=== PATIENT | male | born 1995 ===

== ENCOUNTER 2017-07-19 14:33 | Emergency (ER) | payer MEDICAID, OTHER ==
[2017-07-19 14:34] VITALS: BMI 25.0
[2017-07-19 15:20] VITALS: BP 124/77
[2017-07-19] MEDS ORDERED: TDAP Vaccine 0.5 mL Syr IM ONE (15:32)
--- NOTE | 2017-07-19 16:17 | ED PDOC ---
Arrival/HPI - General Chief Complaint: Abnormal Skin Integrity Time Seen by Provider: 07/19/17 15:31 Historian: Patient - History of Present Illness Narrative History of Present Illness (Text): 07/19/17 16:13 21-year-old male presents today with a laceration to the left third finger. Patient states today around 8 AM he picked up a garbage bag and sustained a laceration. Patient states he thinks he was cut with glass. He isn't sure. Patient is refusing any medications for pain. He denies numbness weakness or tingling in the extremity. Denies decreased range of motion of the finger. Patient denies fevers or chills. Patient is unsure of his last tetanus shot. Patient presents for laceration repair. Time/Duration: Other (8am today) Symptom Onset: Sudden Symptom Course: Improving Past Medical History - Provider Review Nursing Documentation Reviewed: Yes - Travel History Have you recently traveled outside [place] w/in the past 3 mons?: No - Infectious Disease Hx of Infectious Diseases: None - Tetanus Immunization Tetanus Immunization: Unknown - Past Medical History Past Medical History: No Previous - Cardiac Hx Cardiac Disorders: No - Pulmonary Hx Respiratory Disorders: No - Neurological Hx Neurological Disorder: No - HEENT Hx HEENT Disorder: No - Renal Hx Renal Disorder: No - Endocrine/Metabolic Hx Endocrine Disorders: No - Hematological/Oncological Hx Blood Disorders: No - Integumentary Hx Dermatological Disorder: No - Musculoskeletal/Rheumatological Hx Musculoskeletal Disorders: No - Gastrointestinal Hx Gastrointestinal Disorders: No - Genitourinary/Gynecological Hx Genitourinary Disorders: No - Psychiatric Hx Psychophysiologic Disorder: No Hx Substance Use: No - Past Surgical History Past Surgical History: No Previous - Anesthesia Hx Anesthesia: Yes - Suicidal Assessment Feels Threatened In Home Enviroment: No Family/Social History - Physician Review Nursing Documentation Reviewed: Yes Family/Social History: Unknown Family HX Smoking Status: Never Smoked Hx Alcohol Use: No Hx Substance Use: No Hx Substance Use Treatment: No Allergies/Home Meds Allergies/Adverse Reactions: Allergies No Known Allergies Allergy (Verified 07/19/17 15:10) per patient Review of Systems - Review of Systems Constitutional: absent: Fatigue, Fevers Respiratory: absent: SOB, Cough Cardiovascular: absent: Chest Pain, Palpitations Gastrointestinal: absent: Abdominal Pain, Nausea, Vomiting Musculoskeletal: Arthralgias. absent: Back Pain, Neck Pain Skin: Laceration Neurological: absent: Headache, Dizziness Psychiatric: absent: Depression, Suicidal Ideation Physical Exam Vital Signs Reviewed: Yes Vital Signs Temp Pulse Resp BP Pulse Ox 07/19/17 15:20 98.3 F 60 16 124/77 100 07/19/17 15:19 98.3 F 60 16 124/77 100 Temperature: Afebrile Blood Pressure: Normal Pulse: Regular Respiratory Rate: Normal Appearance: Positive for: Well-Appearing, Non-Toxic, Comfortable Pain Distress: None Mental Status: Positive for: Alert and Oriented X 3 - Systems Exam Head: Present: Atraumatic Respiratory/Chest: Present: Clear to Auscultation Cardiovascular: Present: Regular Rate and Rhythm Upper Extremity: Present: Normal ROM, NORMAL PULSES, Neurovascularly Intact, Capillary Refill < 2s, Other (left 3rd finger there is a 1.5cm linear laceration noted to volar aspect of the distal phalanx; full rom of finger; no active bleeding; sensation and distal pulses intact. cap refill <2. ). No: Tenderness, Swelling, Erythema, Deformity Neurological: Present: GCS=15 Skin: Present: Warm, Dry Psychiatric: Present: Alert, Oriented x 3 Medical Decision Making ED Course and Treatment: 07/19/17 16:15 Patient is nontoxic well appearing in no distress. Vital signs are stable. Wound irrigated well with high pressure irrigation Tetanus updated Patient refused medications for pain Keflex by mouth X-ray of the left third finger: No visualized foreign body or fracture. Laceration repair: 5 sutures placed Bacitracin and dressing applied Patient was advised to keep the wound clean and dry, apply bacitracin twice daily. Advised to return immediately if signs of infection develop or return if any other concerning symptoms develop Patient verbalizes understanding of discharge instructions and need for immediate followup. Impression: Laceration, finger Motrin every 6 hours as needed for pain Keflex 1 capsule 4 times daily 7 days Keep the wound clean and dry, apply bacitracin twice daily Return in 7-10 days for suture removal Return immediately if signs of infection develop: High fevers, increasing pain, redness, swelling, purulent discharge Follow up with the hand specialist with the next 2 days. Followup with primary care physician within the next 2 days Return if any other concerning symptoms develop - RAD Interpretation Radiology Orders: 07/19/17 15:31 HAND LEFT 3RD DIGIT (FINGER) [RAD] Stat - Medication Orders Current Medication Orders: Discontinued Medications Cephalexin Monohydrate (Keflex) 500 mg PO STAT STA PRN Reason: Protocol Stop: 07/19/17 15:33 Last Admin: 07/19/17 16:46 Dose: 500 mg Lidocaine HCl (Lidocaine 2% 20ml Vial) 3 ml IJ ONCE STA Stop: 07/19/17 16:22 Tetanus/Reduced Diphtheria/Acell Pertussis (Boostrix Vaccine Inj) 0.5 ml IM .ONCE ONE Stop: 07/19/17 15:33 Last Admin: 07/19/17 16:45 Dose: 0.5 ml [facility] Immunization Data Document 07/19/17 16:45 [email or web address] (Rec: 07/19/17 16:46 [email or web address] [facility] [place] [facility] [place] Immunization Data Vaccine [employer] Vaccine Lot Number [id number] Vaccine Expiration Date 07/31/19 Site Given Right Deltoid Route Intramuscular Immunization Units ml Procedure: Wound Repair - Procedure Procedure: Wound Repair: laceration, finger - Consent Obtained Consent obtained: Verbal - Performed by Performed by: Mid-level Provider - Indications Indication(s):: Laceration - Location Finger:: Left, Middle Shape:: Linear Dimensions Length cm: 1.5cm Depth:: Epidermis - Anesthetic Technique Anesthetic Technique: Regional block (digital block) Local/Regional Anesthetic:: Lidocaine 2% - Debris Debris:: None - Irrigated Irrigated with ml of normal saline: copious amounts of NS using high pressure irrigation - Complexity Complexity:: Simple (one layer) - Wound repair method Sutures:: # (5), Size (4.0), Type (nylon), Technique (interrupted) - Complications Complications: none - Patient tolerated procedure Patient Tolerated Procedure:: Well Disposition/Present on Arrival - Present on Arrival Any Indicators Present on Arrival: No History of DVT/PE: No History of Uncontrolled Diabetes: No Urinary Catheter: No History of Decub. Ulcer: No History Surgical Site Infection Following: None - Disposition Have Diagnosis and Disposition been Completed?: Yes Diagnosis: Laceration of finger Disposition Time: 16:17 Patient Plan: Discharge Patient Problems: Current Active Problems Problem Status Onset Laceration of finger Acute Condition: GOOD Discharge Instructions (ExitCare): Finger Laceration (ED) Additional Instructions: Motrin every 6 hours as needed for pain Keflex 1 capsule 4 times daily 7 days Keep the wound clean and dry, apply bacitracin twice daily Return in 7-10 days for suture removal Return immediately if signs of infection develop: High fevers, increasing pain, redness, swelling, purulent discharge Follow up with the hand specialist with the next 2 days. Followup with primary care physician within the next 2 days Return if any other concerning symptoms develop Prescriptions: Cephalexin [Keflex] 500 mg PO QID #28 capsule Ibuprofen [Motrin] 600 mg PO Q6H PRN #20 tab PRN Reason: pain/fever reduction Referrals: Ney Bliss MD [Staff Provider] - Follow up with primary Cyril Venegas MD [Staff Provider] - Follow up with primary Forms: [facility] (Faroese), WORK NOTE
[2017-07-19] MEDS ORDERED: Lidocaine 2% Inj (20ml) IJ STA (16:21)
--- NOTE | 2017-07-19 17:00 | RAD ---
PROCEDURE: Left middle finger radiographs. HISTORY: laceration distal phalanx COMPARISON: None. TECHNIQUE: AP radiograph of the left hand, as well as spot oblique and lateral images of left middle finger were obtained. FINDINGS: LEFT MIDDLE FINGER: Left middle finger normal, without fracture of focal lesion. Remainder of the left hand (as seen on the AP view) is grossly unremarkable. JOINTS: Normal. No dislocation or subluxation. SOFT TISSUES: No retained radiodense foreign body appreciated. Limited soft tissue edema is questioned at the volar distal tuft soft tissues. No emphysema soft tissue changes. OTHER FINDINGS: None. IMPRESSION: No acute fracture or suspicious lytic or blastic change throughout the left long finger. Questionable tuft soft tissue edema noted.
[2017-07-19 17:24] VITALS: PULSE 88; TEMP 98; O2SAT 99
[2017-07-19 17:34] VITALS: RESP 18
== END 2017-07-19 17:34 | disposition home or self-care (01) ==
LOC: ED 14:33
DX: S61.213A Laceration without foreign body of left middle finger without damage to nail, initial encounter (principal); W25.XXXA Contact with sharp glass, initial encounter; Z23 Encounter for immunization

== ENCOUNTER 2017-09-01 15:22 | Emergency (ER) | payer OTHER ==
[2017-09-01 15:23] VITALS: BMI 25.0
[2017-09-01 15:40] VITALS: TEMP 98.6
--- NOTE | 2017-09-01 16:19 | ED PDOC ---
Arrival/HPI - General Chief Complaint: Upper Extremity Problem/Injury Time Seen by Provider: 09/01/17 15:42 Historian: Patient - History of Present Illness Narrative History of Present Illness (Text): 09/01/17 16:16 21yo male with dominant right hand and no PMHx present with complaint of right hand pain s/p trauma this morning. Patient states his hand was crushed inbetween two dumpsters while at work this morning. Came to ED for the persistent pain. Did not take any medication for the pain. He have small abrasion. States his last TD vaccine was 3months ago. Past Medical History - Provider Review Nursing Documentation Reviewed: Yes - Infectious Disease Hx of Infectious Diseases: None - Tetanus Immunization Tetanus Immunization: Unknown - Past Medical History Past Medical History: No Previous - Cardiac Hx Cardiac Disorders: No - Pulmonary Hx Respiratory Disorders: No - Neurological Hx Neurological Disorder: No - HEENT Hx HEENT Disorder: No - Renal Hx Renal Disorder: No - Endocrine/Metabolic Hx Endocrine Disorders: No - Hematological/Oncological Hx Blood Disorders: No - Integumentary Hx Dermatological Disorder: No - Musculoskeletal/Rheumatological Hx Musculoskeletal Disorders: No - Gastrointestinal Hx Gastrointestinal Disorders: No - Genitourinary/Gynecological Hx Genitourinary Disorders: No - Psychiatric Hx Psychophysiologic Disorder: No Hx Substance Use: No - Past Surgical History Past Surgical History: No Previous - Anesthesia Hx Anesthesia: Yes - Suicidal Assessment Feels Threatened In Home Enviroment: No Family/Social History - Physician Review Nursing Documentation Reviewed: Yes Family/Social History: Unknown Family HX Smoking Status: Never Smoked Hx Alcohol Use: No Hx Substance Use: No Hx Substance Use Treatment: No Allergies/Home Meds Allergies/Adverse Reactions: Allergies No Known Allergies Allergy (Verified 09/01/17 15:37) per patient Review of Systems - Physician Review All systems were reviewed & negative as marked: Yes - Review of Systems Constitutional: Normal Eyes: Normal ENT: Normal Respiratory: Normal Cardiovascular: Normal Gastrointestinal: Normal Genitourinary Male: Normal Musculoskeletal: Arthralgias (Right hand pain) Skin: Normal Neurological: Normal Endocrine: Normal Hemo/Lymphatic: Normal Psychiatric: Normal Physical Exam Vital Signs Reviewed: Yes Vital Signs Temp Pulse Resp BP Pulse Ox 09/01/17 15:37 98.6 F 74 16 100/58 L 99 Temperature: Afebrile Blood Pressure: Normal Pulse: Regular Respiratory Rate: Normal Appearance: Positive for: Well-Appearing, Non-Toxic, Comfortable Pain Distress: None Mental Status: Positive for: Alert and Oriented X 3 - Systems Exam Head: Present: Atraumatic, Normocephalic Pupils: Present: PERRL Extroacular Muscles: Present: EOMI Conjunctiva: Present: Normal Mouth: Present: Moist Mucous Membranes Neck: Present: Normal Range of Motion Respiratory/Chest: Present: Clear to Auscultation, Good Air Exchange. No: Respiratory Distress, Accessory Muscle Use Cardiovascular: Present: Regular Rate and Rhythm, Normal S1, S2. No: Murmurs Abdomen: Present: Normal Bowel Sounds. No: Tenderness, Distention, Peritoneal Signs Back: Present: Normal Inspection Upper Extremity: Present: Normal ROM, NORMAL PULSES, Tenderness (Right volar hand), Swelling (Right volar hand), Neurovascularly Intact, Other (Small abrasion noted on right volar hand). No: Cyanosis, Edema, Erythema, Deformity Lower Extremity: Present: Normal Inspection. No: Edema Neurological: Present: GCS=15, CN II-XII Intact, Speech Normal Skin: Present: Warm, Dry, Normal Color. No: Rashes Psychiatric: Present: Alert, Oriented x 3, Normal Insight, Normal Concentration Medical Decision Making ED Course and Treatment: 09/01/17 16:20 wound was cleaned with peroxide. Bacitracine applied and dressed. Aram wrap applied. PT advised to apply ice to area. Referred to his PMD. TRT ED for worsening or new symptoms - RAD Interpretation Radiology Orders: 09/01/17 15:50 HAND RIGHT 3 VIEWS [RAD] Stat Disposition/Present on Arrival - Present on Arrival Any Indicators Present on Arrival: No History of DVT/PE: No History of Uncontrolled Diabetes: No Urinary Catheter: No History of Decub. Ulcer: No History Surgical Site Infection Following: None - Disposition Have Diagnosis and Disposition been Completed?: Yes Diagnosis: Hand contusion, Abrasion, Hand crush injury Disposition: HOME/ ROUTINE Disposition Time: 16:25 Patient Plan: Discharge Condition: STABLE Discharge Instructions (ExitCare): Crush Injury (ED) Additional Instructions: Keep area clean and dry. Apply ice to the area follow up with your doctor Return to ED for any new or worsening symptoms Prescriptions: Ibuprofen [Motrin Tab] 600 mg PO Q6 #20 tab Referrals: Brendan Carmen MD [Staff Provider] - Follow up with primary Forms: [employer] (Occitan), WORK NOTE
--- NOTE | 2017-09-01 16:20 | RAD ---
PROCEDURE: Right Hand Radiographs. HISTORY: hand pain s/p trauma COMPARISON: None. FINDINGS: BONES: Normal. No fracture. JOINTS: Normal. No osteoarthritic changes. SOFT TISSUES: Normal. OTHER FINDINGS: None. IMPRESSION: Normal right hand radiographs.
[2017-09-01 17:10] VITALS: BP 128/72; PULSE 62; RESP 18; O2SAT 100
== END 2017-09-01 17:03 | disposition home or self-care (01) ==
LOC: ED 15:22
DX: S67.21XA Crushing injury of right hand, initial encounter (principal); S60.221A Contusion of right hand, initial encounter; S60.511A Abrasion of right hand, initial encounter; W23.0XXA Caught, crushed, jammed, or pinched between moving objects, initial encounter; Y99.0 Civilian activity done for income or pay

== ENCOUNTER 2018-03-04 00:14 | Emergency (ER) | payer SELFPAY ==
[2018-03-04 00:14] VITALS: BMI 25.0
[2018-03-04 01:09] VITALS: BP 138/92; RESP 18; TEMP 97.7; O2SAT 100
[2018-03-04] MEDS ORDERED: Oxycodone/Acetaminophen 5/325 mg Tab PO STA (01:14)
--- NOTE | 2018-03-04 01:18 | ED PDOC ---
Arrival/HPI - General Chief Complaint: Abnormal Skin Integrity Time Seen by Provider: 03/04/18 01:09 - History of Present Illness Narrative History of Present Illness (Text): 03/04/18 01:10 22 year old male, whose past medical history include hemorrhoids, presents to the emergency department complaining of hemorrhoidal discomfort for the past couple days. He describes it as a painful swelling to the rectal area. Patient denies any fever, chills, chest pain, shortness of breath, nausea, vomiting, diarrhea, urinary symptoms, back pain, neck pain, headache, dizziness, or any other complaints. Time/Duration: Other (2-3 days ) Symptom Onset: Gradual Symptom Course: Unchanged Activities at Onset: Light Context: Home Past Medical History - Provider Review Nursing Documentation Reviewed: Yes - Infectious Disease Hx of Infectious Diseases: None - Tetanus Immunization Tetanus Immunization: Unknown - Past Medical History Past Medical History: No Previous - Cardiac Hx Cardiac Disorders: No - Pulmonary Hx Respiratory Disorders: No - Neurological Hx Neurological Disorder: No - HEENT Hx HEENT Disorder: No - Renal Hx Renal Disorder: No - Endocrine/Metabolic Hx Endocrine Disorders: No - Hematological/Oncological Hx Blood Disorders: No - Integumentary Hx Dermatological Disorder: No - Musculoskeletal/Rheumatological Hx Musculoskeletal Disorders: No - Gastrointestinal Hx Gastrointestinal Disorders: No - Genitourinary/Gynecological Hx Genitourinary Disorders: No - Psychiatric Hx Psychophysiologic Disorder: No Hx Substance Use: No - Past Surgical History Past Surgical History: No Previous - Anesthesia Hx Anesthesia: Yes - Suicidal Assessment Feels Threatened In Home Enviroment: No Family/Social History - Physician Review Nursing Documentation Reviewed: Yes Family/Social History: No Known Family HX Smoking Status: Never Smoked Hx Alcohol Use: No Hx Substance Use: No Hx Substance Use Treatment: No Allergies/Home Meds Allergies/Adverse Reactions: Allergies No Known Allergies Allergy (Verified 03/04/18 01:06) per patient Review of Systems - Physician Review All systems were reviewed & negative as marked: Yes - Review of Systems Constitutional: absent: Fevers, Other (Chills) Respiratory: absent: SOB Cardiovascular: absent: Chest Pain Gastrointestinal: Other (hemorrhoidal discomfort). absent: Diarrhea, Nausea, Vomiting Genitourinary Male: absent: Dysuria, Frequency, Hematuria Musculoskeletal: absent: Back Pain, Neck Pain Neurological: absent: Headache, Dizziness Physical Exam Vital Signs Reviewed: Yes Vital Signs Temp Pulse Resp BP Pulse Ox 03/04/18 01:07 97.7 F 82 18 138/92 H 100 Temperature: Afebrile Blood Pressure: Normal Pulse: Regular Respiratory Rate: Normal Appearance: Positive for: Well-Appearing, Non-Toxic, Comfortable Pain Distress: None Mental Status: Positive for: Alert and Oriented X 3 - Systems Exam Head: Present: Atraumatic, Normocephalic Pupils: Present: PERRL Extroacular Muscles: Present: EOMI Conjunctiva: Present: Normal Mouth: Present: Moist Mucous Membranes Neck: Present: Normal Range of Motion Respiratory/Chest: Present: Clear to Auscultation, Good Air Exchange. No: Respiratory Distress, Accessory Muscle Use Cardiovascular: Present: Regular Rate and Rhythm, Normal S1, S2. No: Murmurs Abdomen: No: Tenderness, Distention, Peritoneal Signs Rectal: Present: Hemorrhoids (swollen nonthrombosed external hemorrhoid. No bleeding ) Back: Present: Normal Inspection Upper Extremity: Present: Normal Inspection. No: Cyanosis, Edema Lower Extremity: Present: Normal Inspection. No: Edema Neurological: Present: GCS=15, CN II-XII Intact, Speech Normal Skin: Present: Warm, Dry, Normal Color. No: Rashes Psychiatric: Present: Alert, Oriented x 3, Normal Insight, Normal Concentration Medical Decision Making ED Course and Treatment: 03/04/18 01:10 Impression: 22 year old male presents complaining of hemorrhoidal discomfort for the past couple days. Plan: -- Anusol-HC, Percocet 5/325 mg tab -- Reassess and disposition Progress Notes: 03/04/18 01:19 On re-evaluation, is in no acute distress. I have discussed the results and plan with the patient, who expresses understanding. Patient in agreement with plan to be discharged home. Patient is stable for discharge. Patient was instructed to follow up with physician or return if symptoms worsen or new concerning symptoms arise. - Medication Orders Current Medication Orders: Discontinued Medications Hydrocortisone (Anusol-Hc) 25 mg RC ONCE ONE Stop: 03/04/18 01:17 Oxycodone/Acetaminophen (Percocet 5/325 Mg Tab) 1 tab PO STAT STA Stop: 03/04/18 01:15 - Scribe Statement The provider has reviewed the documentation as recorded by the Sherine Elaine Provider Scribe Attestation: All medical record entries made by the Scribe were at my direction and personally dictated by me. I have reviewed the chart and agree that the record accurately reflects my personal performance of the history, physical exam, medical decision making, and the department course for this patient. I have also personally directed, reviewed, and agree with the discharge instructions and disposition. Disposition/Present on Arrival - Present on Arrival Any Indicators Present on Arrival: No History of DVT/PE: No History of Uncontrolled Diabetes: No Urinary Catheter: No History of Decub. Ulcer: No History Surgical Site Infection Following: None - Disposition Have Diagnosis and Disposition been Completed?: Yes Diagnosis: External hemorrhoid Disposition: HOME/ ROUTINE Disposition Time: 01:19 Patient Plan: Discharge Condition: GOOD Discharge Instructions (ExitCare): Hemorrhoids (DC) Additional Instructions: Use medication as prescribed/follow up with your doctor this week Prescriptions: Hydrocortisone [Anusol-HC] 25 mg RC BID PRN #24 sup PRN Reason: Hemorrhoids Docusate Sodium [Colace] 100 mg PO DAILY PRN #20 capsule PRN Reason: Constipation Forms: [facility] (Chinese)
[2018-03-04 03:17] VITALS: PULSE 78
== END 2018-03-04 01:55 | disposition home or self-care (01) ==
LOC: ED 00:14
DX: K64.4 Residual hemorrhoidal skin tags (principal)